=== PATIENT | male | born 1935 | race Caucasian/White ===

== ENCOUNTER 2023-08-31 08:59 | Emergency (ER) | payer OTHER, SELFPAY ==
[2023-08-31 09:15] VITALS: BP 118/62
[2023-08-31 09:44] LABS: % Basophils 1.2 % (0-2); % Eosinophils 5.4 % (0-6); % Immature Granulocytes 0.4 % (0-0.5); % Lymphocytes 20.2 % (20.5-51.1); % Neutrophils 62.8 % (42.2-75.2); Absolute Basophils 0.1 10^3/uL (0-0.2); Absolute Eosinophils 0.3 10^3/uL (0-0.7); Absolute Lymphocytes 1.1 10^3/uL (1.2-3.4); Absolute Monocytes 0.5 10^3/uL (0.1-0.6); Absolute Neutrophils 3.3 10^3/uL (1.4-6.5); Hematocrit 47.9 % (39.0-52.0); Hemoglobin 16.4 g/dL (13.0-18.0); Mean Corp Hgb Conc. 34.2 g/dL (33.0-37.0); Mean Corpuscular Volume 90.5 fL (80.0-94.0); Mean Platelet Volume 8.9 fL (7.4-10.4); Nucleated Red Blood Cells % 0 % (-); Platelet Count 176 10^3/uL (130-400); Red Blood Cell Count 5.29 10^6/uL (4.70-6.10); Red Cell Dist. Width 13.6 % (11.5-14.5); White Blood Cell Count 5.2 10^3/uL (4.8-10.8)
[2023-08-31] MEDS: ANTIVERT 25 MG PO (11:48)
[2023-08-31 11:55] VITALS: BP 121/77
[2023-08-31 12:18] LABS: Blood Urea Nitrogen 24 mg/dl (9-20); Calcium 9.6 mg/dl (8.4-10.2); Carbon Dioxide 25 mmol/L (22-30); Chloride 108 mmol/L (98-107); Glucose 87 mg/dl (70-99); Sodium 138 mmol/L (135-145); eGFR > 60.00
--- NOTE | 2023-08-31 12:52 | ED.GENMED ---
History of Present Illness
General
Chief Complaint: Dizziness
Source: patient and spouse
Time Seen by Provider: 08/31/23 10:46
Travel History
Have you had any contact with someone who has COVID-19?: No
Do you have any symptoms of coronavirus? Fever > 100 degrees, chills, cough, shortness of breath, sore throat, loss of taste or smell, muscle aches, or headache?: No
History of Present Illness
History of Present Illness:
87-year-old male who presents with dizziness that began 2 days ago. The patient states he has been congested for a few weeks. Patient admits that he has had some fullness in his ears as well as just upper airway congestion. He did have a Botox to
his bladder recently but suspect that that related. Since Friday he has had a sense of movement when he shifts his head quickly. He states when he looks up or stands up he develops a sense that he needs to hold onto something. He denies
difficulty walking. No motor weakness. No headache or vision changes. No numbness or tingling. He has had vertigo in the past.
Past History
Past History
ED Past Medical History: Cancer, GERD, Hypercholesterolemia and Other (prostate ca, frequent urination.)
ED Past Surgical History: Orthopedic, Tonsilectomy and Other (History of green light laser prostate vaporization, kidney stone retrieval, left ureteroscopy, stent in 2007, left knee cyst excision)
Social History
Tobacco: Non-smoker
Alcohol: Other
Drug: None
Personal:
Living: with family
Employment: Other
Family History
Family History: Other
Phy Exam
Physical Exam
Physical Exam:
CONSTITUTIONAL Patient alert and oriented to person, place and time. Well-appearing. Vital signs reviewed.
HEAD atraumatic, normocephalic.
EYES eyelids normal to inspection, Pupils equally round and reactive to light, Extraocular muscles intact, Conjunctiva normal, Sclera normal.
NECK normal range of motion, Trachea midline, no jugular venous distention.
RESPIRATORY CHEST No respiratory distress noted, Chest expansion equal, Bilateral breath sounds clear.
CARDIOVASCULAR regular rate and rhythm, Heart sounds normal.
ABDOMEN abdomen nontender, Bowel sounds normal. No distention.
BACK normal inspection, no obvious deformities
UPPER EXTREMITY range of motion normal, Motor strength normal, no cyanosis, no edema.
LOWER EXTREMITY range of motion normal, Motor strength normal, no cyanosis, no edema.
NEURO Speech normal, No focal motor deficits, [place] coma scale 15, Memory normal, Cranial Nerves intact to screening exam. Normal [id number]. Normal [id number]. Symptoms clearly reproduced with the patient turned his head to the right
SKIN skin warm, dry, and normal in color.
Course
Orders/Labs/Results
Orders:
Orders
08/31/23 09:19
EKG [Electrocardiogram (*1)] Urgent
Reason for Study: Shortness of Breath
EKG- Treatment ONCE
08/31/23 09:33
Complete Blood Count/With Diff Urgent
08/31/23 11:36
Meclizine [Antivert] 25 mg PO NOW STA
08/31/23 11:54
Basic Metabolic Panel Urgent
Abnormal Lab Results
08/31/23 08/31/23
09:33 11:54
Absolute Lymphs (auto) 1.1 L 10^3/uL
(1.2-3.4)
Lymphocytes % 20.2 L %
(20.5-51.1)
Monocytes % 10.0 H %
(1.7-9.3)
Chloride 108 H mmol/L
(98-107)
BUN 24 H mg/dl
(9-20)
Creatinine 0.6 L mg/dL
(0.7-1.3)
08/31/23 09:33
08/31/23 11:54
Vital Signs
Initial and Last Documented VS:
Initial Vital Signs
Temp Pulse Resp BP Pulse Ox
98.0 F 84 16 118/62 96
08/31/23 09:15 08/31/23 09:15 08/31/23 09:15 08/31/23 09:15 08/31/23 09:15
Last Documented Vital Signs
Temp Pulse Resp BP Pulse Ox
98.0 F 79 16 121/77 97
08/31/23 09:15 08/31/23 11:55 08/31/23 11:55 08/31/23 11:55 08/31/23 11:55
MDM/Problems Addressed
MDM/Problems Addressed:
Vertigo, upper airway congestion
*Pulse Oximetry
Patient hypoxic: no
*EKG
Interpreted by ED Provider?: Yes
Interpretation: normal
Rate: normal
Rhythm: sinus
[place]: normal axis
Interval: normal interval
QRS Pattern: normal QRS
Ischemia: no ischemia
*Buttermaker Helper Interpretation
Rate: normal
Interpretation: normal
Rhythm: sinus
*Critical Care Note
Total Time (30-74mins, 75-104mins- exclusive of procedures): Not Applicable
Data Reviewed
Review of Other/Old Records Reveals: Discharge Summary (Discharge summary from December 2022 reviewed revealing history of vertigo)
Source: patient
Further Testing Considered But Not Given:
Considered admission for MRI-patient feels much improved after Antivert
Patient Management
Escalation/DeEscalation of care consider admission/obs:
Symptoms and clinical exam consistent with peripheral vertigo. History of vertigo. Cerebellar exam normal. Much improved after meclizine. Discharge. Recommended PCP follow-up as well as physical therapy follow-up. Patient was given the
vestibular physical therapy number
ED Attending Note
-
Portions of this chart may have been created with voice recognition software.� Occasional wrong word or��sound alike� substitutions may have occurred due to the inherent limitations of voice recognition software.
Discharge Plan
Departure
Patient Disposition: Home (Routine Discharge)
Date of Disposition: 08/31/23
Time of Disposition: 12:54
Patient with high blood pressure during this ER visit?: No
Discharge Problem:
Vertigo
Instructions: Vertigo (a Type of Dizziness) (DC)
Prescriptions:
New
meclizine 25 mg tablet
25 mg PO TID PRN (Reason: dizziness) Qty: 20 0RF
No Action
pantoprazole 40 MG tablet,delayed release (DR/EC)
40 mg PO DAILY Qty: 30 0RF
Myrbetriq 50 MG tablet extended release 24 hr
50 mg PO DAILY
famotidine 20 MG tablet
20 mg PO HS
Centrum Ultra Men's 8 mg iron- 200 mcg-600 mcg Tablet
1 tab PO DAILY
omega 3-vdy-qlo-fish oil [Fish Oil] 60-90-500 mg Capsule
1 cap PO DAILY
aspirin 81 mg Tablet,Delayed Release (Dr/Ec)
81 mg PO DAILY Qty: 10 0RF
Referrals:
Sharron Dias CRNP [Family Provider] -
Activity Restrictions/Additional Instructions:
Return immediately for difficulty walking, vision changes, motor weakness of any kind or any other concerns. Please see your doctor in follow-up in the next 3 to 5 days. Please also consider outpatient follow-up with physical therapy.
Interventions
Interventions:
*Risk Screen - Suicide Last Done: 08/31/23 11:55
*General Assessment Last Done: 08/31/23 11:01
*Neglect/Abuse Screening Last Done: 08/31/23 11:55
ED- Fall Risk Assessment Last Done: 08/31/23 13:08
*ED COVID-19 Vaccine History Last Done: 08/31/23 09:15
*Nursing Disposition Last Done: 08/31/23 13:08
ED- Neurological Assessment Last Done: 08/31/23 11:55
ED- Cardiac Assessment Last Done: 08/31/23 11:55
Discharge Date and Time
Discharge Date/Time: 08/31/23 13:10
== END 2023-08-31 13:10 | disposition home or self-care (01) ==
LOC: EMR 08:59
PROVIDERS: EMERGENCY PHYSICIAN Emergency Medicine; FAMILY PHYSICIAN Nurse Practitioner Family
DX: R42 Dizziness and giddiness (principal)
CPT/HCPCS: 99284; 80048; 85025; 93005

== ENCOUNTER 2023-09-12 06:54 | Outpatient (RCR) | payer OTHER, SELFPAY | END 2023-09-12 23:59 | disposition home or self-care (01) | LOC: RPT 06:54 | PROVIDERS: ATTENDING PHYSICIAN Nurse Practitioner Family | DX: R26.81 Unsteadiness on feet (principal); R42 Dizziness and giddiness; Z73.6 Limitation of activities due to disability; R26.2 Difficulty in walking, not elsewhere classified | CPT/HCPCS: 97110; 97162 ==

== ENCOUNTER → 2023-10-04 09:57 | Outpatient (REF) | payer OTHER, SELFPAY | LOC: RAD 09:57 | PROVIDERS: ATTENDING PHYSICIAN Nurse Practitioner Family | DX: H81.4 Vertigo of central origin (principal) | CPT/HCPCS: 70450 ==

== ENCOUNTER → 2023-11-13 12:43 | Outpatient (REF) | payer OTHER, SELFPAY | LOC: REG 12:43 | PROVIDERS: ATTENDING PHYSICIAN Urology; FAMILY PHYSICIAN Nurse Practitioner Family | DX: N39.0 Urinary tract infection, site not specified (principal) | CPT/HCPCS: 87086 ==

== ENCOUNTER 2024-03-26 06:24 | Day surgery (SDC) | payer OTHER, SELFPAY ==
[2024-03-26 10:20] VITALS: BP 169/100
[2024-03-26 10:41] VITALS: BMI 23.0
[2024-03-26 11:22] VITALS: BP 97/58
[2024-03-26 11:30] VITALS: BP 105/72
[2024-03-26 11:45] VITALS: BP 107/68
== END 2024-03-26 11:50 | disposition home or self-care (01) ==
LOC: SDS 06:24
PROVIDERS: ATTENDING PHYSICIAN Internal Medicine; FAMILY PHYSICIAN Nurse Practitioner Family
PROC: 0DB68ZX Excision of Stomach, Via Natural or Artificial Opening Endoscopic, Diagnostic (ICD-10-PCS; 2024-03-26)
PROC: 0DB48ZX Excision of Esophagogastric Junction, Via Natural or Artificial Opening Endoscopic, Diagnostic (ICD-10-PCS; 2024-03-26)
PROC: 3E0G8GC Introduction of Other Therapeutic Substance into Upper GI, Via Natural or Artificial Opening Endoscopic (ICD-10-PCS; 2024-03-26)
DX: K22.0 Achalasia of cardia (principal); K22.2 Esophageal obstruction; K29.70 Gastritis, unspecified, without bleeding
CPT/HCPCS: 43239; 43236; 88305; 88342; J0585

== ENCOUNTER 2024-03-28 10:49 | Emergency (ER) | payer OTHER, SELFPAY ==
[2024-03-28 10:52] VITALS: BP 138/79
[2024-03-28 11:32] VITALS: BP 102/63
[2024-03-28 12:03] VITALS: BP 117/66
--- NOTE | 2024-03-28 12:56 | ED.GENMED ---
History of Present Illness
General
Chief Complaint: Visual Problem
Time Seen by Provider: 03/28/24 11:18
History of Present Illness
History of Present Illness:
88-year-old male without significant past medical history presenting to the emergency department for blurred vision to the left eye. Patient reports that 2 weeks ago he had an episode of eye pain and blurred vision, however resolved. Reports that
he was mowing the lawn yesterday and when he woke up this morning, again had eye pain and blurred vision. He reports that he has not seen an eye doctor in a while. Denies any associated headache, difficulty breathing. Denies fever. Denies
abdominal pain or GI symptoms. Denies focal weakness or sensory deficits to his extremities. Denies additional acute medical complaints.
Past History
Past History
ED Past Medical History: Cancer, GERD, Hypercholesterolemia and Other (prostate ca, frequent urination.)
ED Past Surgical History: Orthopedic, Tonsilectomy and Other (History of green light laser prostate vaporization, kidney stone retrieval, left ureteroscopy, stent in 2007, left knee cyst excision)
Social History
Tobacco: Non-smoker
Alcohol: Other
Drug: None
Personal:
Living: with family
Employment: Other
Family History
Family History: Other
Phy Exam
Physical Exam
Physical Exam:
General: Well-appearing, no clinical signs of dehydration, nontoxic and in no acute distress
HEENT: protecting airway, pupils equal and reactive bilaterally, extraocular movements intact. No proptosis. No cloudiness of the cornea
Neck: appears supple
CV: Normal heart rate, regular rhythm, no evidence of cyanosis
Resp: No accessory muscle use, no increased work of breathing, lungs clear to auscultation bilaterally
Abd: Nondistended
Extremities: No deformities, no swelling
Neuro: alert, no focal neurologic deficit
: deferred
Rectal: deferred
Psych: Normal affect
Skin: Intact
Course
Orders/Labs/Results
Orders:
Orders
03/28/24 12:01
CT Head W/o Iv Contrast Urgent
Comment:
Reason For Exam: blurred vision left eye
03/28/24 12:08
Tetracaine HCl [Tetracaine 0.5% Ophthalmic Solution] 1 drop .ROUTE .STK-MED ONE
Vital Signs
Initial and Last Documented VS:
Initial Vital Signs
Temp Pulse Resp BP Pulse Ox
98.4 F 89 16 138/79 95
03/28/24 10:52 03/28/24 10:52 03/28/24 10:52 03/28/24 10:52 03/28/24 10:52
Last Documented Vital Signs
Temp Pulse Resp BP Pulse Ox
98.4 F 89 16 117/66 95
03/28/24 10:52 03/28/24 10:52 03/28/24 10:52 03/28/24 12:03 03/28/24 12:03
MDM/Problems Addressed
MDM/Problems Addressed:
88-year-old male presenting for left eye blurriness and pain. Vital signs normal.
On exam, patient is well-appearing, no acute distress or discomfort. Overall unremarkable external examination of the eye. Visual acuity obtained, poor vision bilaterally, 20/125 to the left and 20/100 to the right. Patient has not seen an eye
doctor in a while. Eye pressures obtained to evaluate for possible acute angle-closure glaucoma. Normal pressures bilaterally, 12 in the affected eye, 15 in the right eye. Patient's eye was fluorescein, evidence of a corneal abrasion on the left.
Suspect etiology of patient's symptoms. Notes that he was cutting the grass yesterday and may have gotten some time. Given episode about 2 weeks ago as well as patient's age, will screen with CT brain imaging. Otherwise no focal neurologic
deficits. Patient afebrile, nontoxic
CT without acute intracranial abnormality. On reassessment patient remains hemodynamically stable. At this time feel that he is stable for discharge. Will start patient on ophthalmic antibiotic. However, advise very close interval follow-up with
eye doctor. Return precautions discussed and patient verbalized understanding
*Critical Care Note
Total Time (30-74mins, 75-104mins- exclusive of procedures): Not Applicable
ED Attending Note
-
Portions of this chart may have been created with voice recognition software.� Occasional wrong word or��sound alike� substitutions may have occurred due to the inherent limitations of voice recognition software.
Discharge Plan
Departure
Patient Disposition: Home (Routine Discharge)
Date of Disposition: 03/28/24
Time of Disposition: 14:11
Patient with high blood pressure during this ER visit?: No
Condition: Good
Discharge Problem:
Corneal abrasion, Blurred vision
Instructions: Corneal Abrasion ED
Prescriptions:
New
erythromycin 5 mg/gram (0.5 %) ointment
0.5 inch ophthalmic (eye) QID 5 Days Qty: 3.5 0RF
No Action
mirabegron [Myrbetriq] 25 mg Tablet Extended Release 24 Hr
25 mg PO DAILY
Centrum
1 tab PO DAILY
Referrals:
Sharron Dias CRNP [Family Provider] -
Emanuel Navarro MD [Active] - (blurred vision)
Activity Restrictions/Additional Instructions:
You were seen in the emergency department for blurred vision
You were found to have a scratch on your cornea. Please follow-up with eye doctor
Please follow-up closely with your primary care physician.
Return to the emergency department for any worsening of your symptoms including any worsening of your vision, increased pain to the eye, redness or swelling to the eye, or any development of chest pain, difficulty breathing, abdominal pain with
persistent vomiting and inability to tolerate food or liquid by mouth (concern for dehydration), weakness, headache or confusion, fever greater than 100.4, or any additional symptoms that are concerning to you.
Thank you for choosing [facility].
Interventions
Interventions:
*Risk Screen - Suicide Last Done: 03/28/24 11:32
*General Assessment Last Done: 03/28/24 11:32
*Neglect/Abuse Screening Last Done: 03/28/24 11:32
ED- Fall Risk Assessment Last Done: 03/28/24 11:32
*ED COVID-19 Vaccine History Last Done: 03/28/24 11:32
ED- Neurological Assessment Last Done: 03/28/24 11:32
ED-EENT Assessment Last Done: 03/28/24 11:32
ED Swallowing Screen Last Done: 03/28/24 11:32
Discharge Date and Time
Print Language: [place]
[2024-03-28 14:28] VITALS: BP 125/85
== END 2024-03-28 14:30 | disposition home or self-care (01) ==
LOC: EMR 10:49
PROVIDERS: EMERGENCY PHYSICIAN Student in an Organized Health Care Education/Training Program; FAMILY PHYSICIAN Nurse Practitioner Family
DX: S05.02XA Injury of conjunctiva and corneal abrasion without foreign body, left eye, initial encounter (principal); X58.XXXA Exposure to other specified factors, initial encounter; H53.8 Other visual disturbances; K21.9 Gastro-esophageal reflux disease without esophagitis; E78.00 Pure hypercholesterolemia, unspecified; Z85.46 Personal history of malignant neoplasm of prostate; Z87.442 Personal history of urinary calculi
CPT/HCPCS: 99284; 70450

== ENCOUNTER → 2024-06-08 14:50 | Outpatient (REF) | payer OTHER, SELFPAY | LOC: RAD 14:50 | PROVIDERS: ATTENDING PHYSICIAN Nurse Practitioner Family | DX: R05.1 Acute cough (principal) | CPT/HCPCS: 71046 ==

== ENCOUNTER 2024-06-27 09:53 | Emergency (ER) | payer OTHER, SELFPAY ==
[2024-06-27 09:55] VITALS: BP 173/95
--- NOTE | 2024-06-27 10:37 | ED.GENMED ---
History of Present Illness
<Perla Carlson MD, Resident - Last Filed: 06/27/24 11:03>
General
Chief Complaint: Musculo-Skeletal Complaint
Time Seen by Provider: 06/27/24 10:18
History of Present Illness
History of Present Illness:
88 y/o male with pmhx of prostate cancer s/p prostatectomy presenting to the ED with pain in his left groin following yard work earlier today. Pt notes he was moving branches and got hit in that area. Pain is prominently in the left groin. Pt has
urinated after injury and denies blood in urine. No other symptoms.
Past History
<Perla Carlson MD, Resident - Last Filed: 06/27/24 11:03>
Past History
ED Past Medical History: Cancer, GERD, Hypercholesterolemia and Other (prostate ca, frequent urination.)
ED Past Surgical History: Orthopedic, Tonsilectomy and Other (History of green light laser prostate vaporization, kidney stone retrieval, left ureteroscopy, stent in 2007, left knee cyst excision)
Social History
Tobacco: Non-smoker
Alcohol: Other
Drug: None
Personal:
Living: with family
Employment: Other
Family History
Family History: Other
Review of Systems
<Perla Carlson MD, Resident - Last Filed: 06/27/24 11:03>
Review of Systems
Constitutional: Reports no symptoms
EENT: Reports no symptoms
Respiratory: Reports no symptoms
Cardiac: Reports no symptoms
ABD/GI: Reports no symptoms
: Reports other (groin pain)
Musculoskeletal: Reports no symptoms
Skin: Reports no symptoms
Neurological: Reports no symptoms
Endocrine: Reports no symptoms
Hematologic/Lymphatic: Reports no symptoms
Psychiatric: Reports no symptoms
Phy Exam
<Perla Carlson MD, Resident - Last Filed: 06/27/24 11:03>
Physical Exam
Physical Exam:
GENERAL: Alert, in no apparent distress
EYE: pupils equal and reactive
NECK: Supple, no significant adenopathy.
ENT: o/p clr, mmm.
CARDIAC: Regular rate and rhythm .
LUNGS: Clear breath sounds bilaterally, no acute respiratory distress, no wheezes/rales/rhonchi
ABDOMEN: Soft, without focal tenderness, no r/g, no cvat.
NEUROLOGICAL: Alert and oriented, no focal neuro deficits
SKIN: Warm and dry, skin intact.
MUSCULOSKELETAL: No edema, well perfused. Femoral and distal pulses palpated
PSYCH: Normal and appropriate interaction.
Genitourinary Exam Male
Exam Male: no CVAT, no discharge, normal external genitalia, normal testicular exam, no evidence of trauma, no lesions, no testicular swelling and no testicular tenderness
Course
<Perla Carlson MD, Resident - Last Filed: 06/27/24 11:03>
Vital Signs
Initial and Last Documented VS:
Initial Vital Signs
Temp Pulse Resp BP Pulse Ox
97.8 F 69 18 173/95 95
06/27/24 09:55 06/27/24 09:55 06/27/24 09:55 06/27/24 09:55 06/27/24 09:55
Last Documented Vital Signs
Temp Pulse Resp BP Pulse Ox
98.2 F 68 14 141/88 98
06/27/24 11:50 06/27/24 11:50 06/27/24 11:50 06/27/24 11:50 06/27/24 11:50
Elainelt;Sadi Beltran DO - Last Filed: 06/27/24 17:20>
Vital Signs
Initial and Last Documented VS:
Initial Vital Signs
Temp Pulse Resp BP Pulse Ox
97.8 F 69 18 173/95 95
06/27/24 09:55 06/27/24 09:55 06/27/24 09:55 06/27/24 09:55 06/27/24 09:55
Last Documented Vital Signs
Temp Pulse Resp BP Pulse Ox
98.2 F 68 14 141/88 98
06/27/24 11:50 06/27/24 11:50 06/27/24 11:50 06/27/24 11:50 06/27/24 11:50
<Perla Carlson MD, Resident - Last Filed: 06/27/24 11:03>
MDM/Problems Addressed
Differential Diagnosis Includes:
Contusion
<Sadi Beltran, DO - Last Filed: 06/27/24 17:20>
MDM/Problems Addressed
Differential Diagnosis Includes:
Contusion, testicular injury,
MDM/Problems Addressed:
Physical exam shows some tenderness in the inguinal region. Testicle itself is okay. No further workup indicated
<Perla Carlson MD, Resident - Last Filed: 06/27/24 11:03>
*Critical Care Note
Total Time (30-74mins, 75-104mins- exclusive of procedures): Not Applicable
ED Attending Note
<Perla Carlson MD, Resident - Last Filed: 06/27/24 11:03>
-
Portions of this chart may have been created with voice recognition software.� Occasional wrong word or��sound alike� substitutions may have occurred due to the inherent limitations of voice recognition software.
<Sadi Beltran, DO - Last Filed: 06/27/24 17:20>
ED Attending Note
Patient seen and examined by attending physician: Yes
I performed a history and physical exam of patient and discussed management with resident, I reviewed resident's note and agree with documented findings and plan of care.: Yes
ED Attending Note:
I agree with Dr. Carlson's note.
Pt with pain left groin after branch struck him in left groin after he cut it. No testicular pain.
Genitalia: normal appearing male genitalia. Tender to palpation left groin
Contusion.....supportive care
Discharge Plan
Departure
Patient Disposition: Home (Routine Discharge)
Date of Disposition: 06/27/24
Time of Disposition: 10:56
Patient with high blood pressure during this ER visit?: Yes
Discharge Problem:
Left groin pain
Instructions: BLOOD PRESSURE
Prescriptions:
No Action
mirabegron [Myrbetriq] 25 mg Tablet Extended Release 24 Hr
25 mg PO DAILY
Centrum
1 tab PO DAILY
erythromycin 5 mg/gram (0.5 %) ointment
0.5 inch ophthalmic (eye) QID 5 Days Qty: 3.5 0RF
Referrals:
Sharron Dias CRNP [Family Provider] -
Interventions
Interventions:
*Risk Screen - Suicide Last Done: 06/27/24 09:55
*General Assessment Last Done: 06/27/24 09:55
*Neglect/Abuse Screening Last Done: 06/27/24 09:55
ED- Fall Risk Assessment Last Done: 06/27/24 11:05
*ED COVID-19 Vaccine History Last Done: 06/27/24 11:05
*Nursing Disposition Last Done: 06/27/24 11:05
ED-Musculoskeletal Assessment Last Done: 06/27/24 11:50
Discharge Date and Time
Discharge Date/Time: 06/27/24 11:05
Print Language: [id number]
[2024-06-27 11:50] VITALS: BP 141/88
== END 2024-06-27 11:05 | disposition home or self-care (01) ==
LOC: EMR 09:53
PROVIDERS: EMERGENCY PHYSICIAN Emergency Medicine; FAMILY PHYSICIAN Nurse Practitioner Family
DX: R10.32 Left lower quadrant pain (principal); W22.8XXA Striking against or struck by other objects, initial encounter; K21.9 Gastro-esophageal reflux disease without esophagitis; E78.00 Pure hypercholesterolemia, unspecified; Z85.46 Personal history of malignant neoplasm of prostate; Z87.442 Personal history of urinary calculi; Z90.79 Acquired absence of other genital organ(s)
CPT/HCPCS: 99282

== ENCOUNTER 2024-08-08 09:20 | Emergency (ER) | payer OTHER, SELFPAY ==
[2024-08-08 09:23] VITALS: BP 143/82
--- NOTE | 2024-08-08 10:13 | ED.GENMED ---
History of Present Illness
<Ariane Fletcher PA-C - Last Filed: 08/08/24 17:58>
General
Chief Complaint: Skin Surface Trauma
Source: patient
Exam Limitations: none
Time Seen by Provider: 08/08/24 10:03
Nursing documentation reviewed up to this point in time: agreed with
History of Present Illness
History of Present Illness:
Patient is 88 year old male w/ hx hyperlipidemia, GERD presenting to the emergency department for evaluation of left foot laceration. Patient states he was getting ready for bed last night around 10 PM when he hit the bottom of his foot against a
piece of furniture causing the laceration. He was able to get the bleeding to stop last night and applied a Band-Aid. It started bleeding again this morning prompting his visit to the emergency department. Patient did not sustain any other
injuries in the fall. No blood thinners. Unknown last tetanus vaccine.
Past History
<Ariane Fletcher PA-C - Last Filed: 08/08/24 17:58>
Past History
ED Past Medical History: Cancer, GERD, Hypercholesterolemia and Other (prostate ca, frequent urination.)
ED Past Surgical History: Orthopedic, Tonsilectomy and Other (History of green light laser prostate vaporization, kidney stone retrieval, left ureteroscopy, stent in 2007, left knee cyst excision)
Social History
Tobacco: Non-smoker
Alcohol: Other
Drug: None
Personal:
Living: with family
Employment: Other
Family History
Family History: Other
Review of Systems
<BUDDY Araujo Last Filed: 08/08/24 17:58>
Review of Systems
Allergies reviewed?: Yes
All Other Systems: ROS reviewed and negative except as documented in HPI and ROS
Phy Exam
<Ariane Fletcher PA-C - Last Filed: 08/08/24 17:58>
Physical Exam
Physical Exam:
Vitals: Mildly hypertensive, otherwise vital signs stable. Afebrile
General: Patient is well appearing, no acute distress. Nontoxic appearing
Skin: Approximately 3 cm curved superficial skin flap of callous on left plantar foot. No active bleeding
Head: Normocephalic, atraumatic
Throat: Protecting airway
Neck: Normal ROM, no cervical spine tenderness
Cardiac: Regular rate
Pulm: No apparent respiratory distress
Abdomen: Nondistended
Extremities: Superficial skin flap laceration to left plantar foot as described above. LLE neurovascularly intact. Palpable DP pulses.
Neuro: Grossly intact
Psychiatric: Normal affect.
Course
<Ariane Fletcher PA-C - Last Filed: 08/08/24 17:58>
Orders/Labs/Results
Orders:
Orders
08/08/24 10:12
Tetanus/Diphth/Acelpertussis [Adacel] 0.5 ml IM .ONCE ONE
Vital Signs
Initial and Last Documented VS:
Initial Vital Signs
Temp Pulse Resp BP Pulse Ox
97.5 F 98 16 143/82 95
08/08/24 09:23 08/08/24 09:23 08/08/24 09:23 08/08/24 09:23 08/08/24 09:23
Last Documented Vital Signs
Temp Pulse Resp BP Pulse Ox
97.5 F 98 16 143/82 95
08/08/24 09:23 08/08/24 09:23 08/08/24 09:23 08/08/24 09:23 08/08/24 09:23
<Rob Moore DO - Last Filed: 08/08/24 10:44>
Orders/Labs/Results
Orders:
Orders
08/08/24 10:12
Tetanus/Diphth/Acelpertussis [Adacel] 0.5 ml IM .ONCE ONE
Vital Signs
Initial and Last Documented VS:
Initial Vital Signs
Temp Pulse Resp BP Pulse Ox
97.5 F 98 16 143/82 95
08/08/24 09:23 08/08/24 09:23 08/08/24 09:23 08/08/24 09:23 08/08/24 09:23
Last Documented Vital Signs
Temp Pulse Resp BP Pulse Ox
97.5 F 98 16 143/82 95
08/08/24 09:23 08/08/24 09:23 08/08/24 09:23 08/08/24 09:23 08/08/24 09:23
Procedures
<Ariane Fletcher PA-C - Last Filed: 08/08/24 17:58>
Laceration Closure
Left Plantar Foot:
Status of Wound: clean
Size of Wound in cm: 3
Description of Wound Edges: flap-well vascularized
Preparation: cleaned with saline
Revision/Debridement: routine- no revision
Wound exploration: explored to base- no FB
Type of Closure: Dermabond-skin glue
<Ariane Fletcher PA-C - Last Filed: 08/08/24 17:58>
MDM/Problems Addressed
Differential Diagnosis Includes:
Not limited to: Laceration, contusion, etc.
MDM/Problems Addressed:
88-year-old male presenting with laceration to left plantar foot which occurred last night after stubbing his foot in a furniture. Patient denies any blood thinners. No other injury sustained. Patient is stable vital signs on arrival. On
exam�patient is well-appearing, no apparent distress. There is a very superficial flap laceration of left plantar foot that is not bleeding. It appears to be a laceration of a callus. Left lower extremity neurovascular intact. Wound was
thoroughly irrigated normal saline. Dermabond skin glue was applied to further enforced superficial flap with wound edges well-approximated. Tetanus shot updated. Advise close monitoring for signs of infection. Wound care instruction discussed.
Patient stable for discharge.
Chronic conditions affecting care:
N/A
Acute Exacerbation and/or Progression of Chronic Illness:
N/A
<Ariane Fletcher PA-C - Last Filed: 08/08/24 17:58>
*Pulse Oximetry
Patient hypoxic: no
*EKG
Interpreted by ED Provider?: NA
*Lieutenant/Deputy Interpretation
Rate: Lieutenant/Deputy- N/A
*Critical Care Note
Total Time (30-74mins, 75-104mins- exclusive of procedures): Not Applicable
ED Attending Note
<Ariane Fletcher PA-C - Last Filed: 08/08/24 17:58>
-
Portions of this chart may have been created with voice recognition software.� Occasional wrong word or��sound alike� substitutions may have occurred due to the inherent limitations of voice recognition software.
<Rob Moore DO - Last Filed: 08/08/24 10:44>
ED Attending Note
Patient seen and examined by attending physician: Yes
I performed the substantive portion of visit, reviewed & personally made and approve the management plan that is documented in note by myself or SAM.: Yes
Discharge Plan
Departure
Patient Disposition: Home (Routine Discharge)
Date of Disposition: 08/08/24
Time of Disposition: 10:45
Patient with high blood pressure during this ER visit?: Yes
Condition: Good
Covid-19: Not Applicable
Discharge Problem:
Laceration of foot, left
Instructions: Laceration Repair With Glue (DC), Wound Care (DC), BLOOD PRESSURE
Prescriptions:
No Action
mirabegron [Myrbetriq] 25 mg Tablet Extended Release 24 Hr
25 mg PO DAILY
Centrum
1 tab PO DAILY
erythromycin 5 mg/gram (0.5 %) ointment
0.5 inch ophthalmic (eye) QID 5 Days Qty: 3.5 0RF
Referrals:
Sharron Dias CRNP [Family Provider] - Follow up in 1 week
Activity Restrictions/Additional Instructions:
RETURN TO THE EMERGENCY DEPARTMENT WITH ANY BLEEDING THAT WILL NOT STOP AT HOME OR ANY SIGNS OF INFECTION INCLUDING FEVER, SIGNIFICANT REDNESS/SWELLING OF LEFT FOOT, RED STREAKING FROM WOUND, PUS DRAINING FROM WOUND, OR ANY OTHER CONCERNS
-As discussed�your wound was closed with skin glue today in the emergency department. This will slowly dissolve over time. Keep wound clean and dry. Wash gently with soap and water daily. Keep covered with Band-Aid.
-You should monitor very closely for signs infection and follow-up with your primary care return to the emergency department if you develop any infectious symptoms
-You should stay off your foot today and limit weightbearing over the next few days as wound continues to heal
Monitor your symptoms closely return to the emergency department with any acute worsening/new symptoms or any other concerns
Interventions
Interventions:
*Risk Screen - Suicide Last Done: 08/08/24 09:23
*General Assessment Last Done: 08/08/24 09:23
*Neglect/Abuse Screening Last Done: 08/08/24 09:23
*ED COVID-19 Vaccine History Last Done: 08/08/24 09:23
*Nursing Disposition Last Done: 08/08/24 10:55
Discharge Date and Time
Discharge Date/Time: 08/08/24 10:55
Print Language: FRENCH
[2024-08-08] MEDS: ADACEL 0.5 ML IM (10:50)
== END 2024-08-08 10:55 | disposition home or self-care (01) ==
LOC: EMR 09:20
PROVIDERS: EMERGENCY PHYSICIAN Emergency Medicine; FAMILY PHYSICIAN Nurse Practitioner Family
DX: S91.312A Laceration without foreign body, left foot, initial encounter (principal); W22.03XA Walked into furniture, initial encounter; E78.00 Pure hypercholesterolemia, unspecified; K21.9 Gastro-esophageal reflux disease without esophagitis
CPT/HCPCS: 99282; 12002; 90471; 90715

== ENCOUNTER → 2024-08-12 14:36 | Outpatient (REF) | payer OTHER, SELFPAY | LOC: REG 14:36 | PROVIDERS: ATTENDING PHYSICIAN Urology | DX: R30.0 Dysuria (principal) | CPT/HCPCS: 87086 ==

== ENCOUNTER → 2025-01-10 10:16 | Outpatient (REF) | payer OTHER, SELFPAY | LOC: REG 10:16 | PROVIDERS: ATTENDING PHYSICIAN Urology; FAMILY PHYSICIAN Nurse Practitioner Family | DX: R30.0 Dysuria (principal) | CPT/HCPCS: 87086 ==

== ENCOUNTER 2025-02-22 12:29 | Emergency (ER) | payer OTHER, SELFPAY ==
[2025-02-22 12:31] VITALS: BP 139/94
--- NOTE | 2025-02-22 13:23 | ED.GENMED ---
History of Present Illness
General
Chief Complaint: Fall
Source: patient
Time Seen by Provider: 02/22/25 12:50
History of Present Illness
History of Present Illness:
Note:
CHIEF COMPLAINT(S)
Skin abrasion on the back.
HISTORY OF PRESENT ILLNESS
The patient is an 89-year-old male who presented with a skin abrasion sustained approximately a day and a half ago from a fall. He reported tripping and to avoid hitting his head, he managed to fall on his back. The abrasion is located at the mid
thoracic spine area, specifically around the T9 to T10 spinous processes. The patient described a burning sensation at the site of the injury. The injury was noted to have taken a layer of skin off, requiring topical management to promote healing.
PHYSICAL EXAM
General: Alert, no acute distress.
Skin: Abrasion noted on the mid thoracic spine in the region of the T9 to T10 spinous processes. No surrounding redness, with small abrasions observed.
Head: Normocephalic, atraumatic.
Neck: Supple, trachea midline.
Eye, Ears, Nose, Mouth and Throat: Oral mucosa moist.
Cardiovascular: Normal peripheral perfusion, No edema.
Respiratory: Respirations are non-labored.
Gastrointestinal: Abdomen nondistended.
Back: Abrasion as noted. Normal alignment and range of motion.
Musculoskeletal: Normal range of motion, normal strength.
Neurological: Alert and oriented to person, place, time, and situation. No focal neurological deficit observed.
Psychiatric: Cooperative, appropriate mood and affect.
PLAN
1. Provide an antibiotic ointment for topical application today and tomorrow.
2. Advise switching to Vaseline for continued management to keep the area moist and support healing.
3. Instruct the patient to cover the abrasion with a dressing to prevent clothes from irritating the site, especially when outside the home or when sitting for extended periods.
4. Educate the patient to avoid sun exposure on the abrasion.
DIFFERENTIAL DIAGNOSIS
The Differential Diagnosis includes, in no particular order and is not limited to:
1. Mechanical fall with resultant abrasion
2. Contusion
3. Fracture (less likely given the presentation)
4. Infection of the site (preventive consideration)
5. Pressure ulceration (consideration given the location and age)
6. Skin laceration
7. Neuropathy-related skin changes
8. Musculoskeletal pain.
9. Spinal disc injury
10. Hematoma formation
Disposition:
SUMMARY OF ENCOUNTER
The patient, an 89-year-old male, presented with a skin abrasion on the mid thoracic spine after falling approximately a day and a half ago. The abrasion resulted from an attempt to prevent head injury during the fall. Notable findings include two
small abrasions at the areas of kyphosis. Management involved providing general wound care. There was no evidence of infection identified during the evaluation.
PLAN
1. Apply antibiotic ointment today and tomorrow.
2. Switch to Vaseline to maintain moisture and support healing.
3. Cover the abrasion with a dressing to prevent irritation from clothing, especially when outside or sitting for long durations.
4. Avoid sun exposure on the affected area.
MEDICAL DECISION MAKING
-Complexity of Data Reviewed: Chronic conditions affecting care may include the potential diagnoses of mechanical fall with resultant abrasion, contusion, infection prevention considerations, skin laceration, and pressure ulceration among others.
DIAGNOSIS
1. Abrasion, thoracic spine (ICD-10: S30.851A).
Past History
Past History
ED Past Medical History: Cancer, GERD, Hypercholesterolemia and Other (prostate ca, frequent urination.)
ED Past Surgical History: Orthopedic, Tonsilectomy and Other (History of green light laser prostate vaporization, kidney stone retrieval, left ureteroscopy, stent in 2007, left knee cyst excision)
Social History
Tobacco: Non-smoker
Alcohol: Other
Drug: None
Personal:
Living: with family
Employment: Other
Family History
Family History: Other
Phy Exam
Physical Exam
Physical Exam:
.
Course
Vital Signs
Initial and Last Documented VS:
Initial Vital Signs
Temp Pulse Resp BP Pulse Ox
98.1 F 86 16 139/94 96
02/22/25 12:31 02/22/25 12:31 02/22/25 12:31 02/22/25 12:31 02/22/25 12:31
Last Documented Vital Signs
Temp Pulse Resp BP Pulse Ox
98.1 F 86 16 139/94 96
02/22/25 12:31 02/22/25 12:31 02/22/25 12:31 02/22/25 12:31 02/22/25 12:31
*Pulse Oximetry
SaO2: 96
Oxygen Mode of Delivery: Room air
Patient hypoxic: no
*Critical Care Note
Total Time (30-74mins, 75-104mins- exclusive of procedures): Not Applicable
ED Attending Note
-
Portions of this chart may have been created with voice recognition software.� Occasional wrong word or��sound alike� substitutions may have occurred due to the inherent limitations of voice recognition software.
Discharge Plan
Departure
Patient Disposition: Home (Routine Discharge)
Date of Disposition: 02/22/25
Time of Disposition: 13:23
Patient with high blood pressure during this ER visit?: Yes
Discharge Problem:
Abrasion
Instructions: Skin Abrasions (DC), BLOOD PRESSURE
Prescriptions:
No Action
mirabegron [Myrbetriq] 25 mg Tablet Extended Release 24 Hr
25 mg PO DAILY
Centrum
1 tab PO DAILY
erythromycin 5 mg/gram (0.5 %) ointment
0.5 inch ophthalmic (eye) QID 5 Days Qty: 3.5 0RF
Referrals:
Sharron Dias CRNP [Family Provider, Family Practice]
Activity Restrictions/Additional Instructions:
Please keep wound clean and dry. Apply Vaseline 2-3 times a day for wound care. Return immediately for redness, drainage from the wound, worsening pain or any other concerns.
Interventions
Interventions:
*Risk Screen - Suicide Last Done: 02/22/25 12:33
*Neglect/Abuse Screening Last Done: 02/22/25 12:33
Discharge Date and Time
Print Language: BHUTANESE
== END 2025-02-22 13:31 | disposition home or self-care (01) ==
LOC: EMR 12:29
PROVIDERS: EMERGENCY PHYSICIAN Emergency Medicine; FAMILY PHYSICIAN Nurse Practitioner Family
DX: S20.419A Abrasion of unspecified back wall of thorax, initial encounter (principal); W01.0XXA Fall on same level from slipping, tripping and stumbling without subsequent striking against object, initial encounter; E78.00 Pure hypercholesterolemia, unspecified
CPT/HCPCS: 99282

== ENCOUNTER → 2025-05-30 10:01 | Outpatient (REF) | payer OTHER, SELFPAY ==
[2025-05-30 17:49] LABS: Hematocrit 51.7 % (39.0-52.0); Hemoglobin 16.8 g/dL (13.0-18.0); Mean Corp Hgb Conc. 32.5 g/dL (33.0-37.0); Mean Corpuscular Volume 92.7 fL (80.0-94.0); Nucleated Red Blood Cells % 0 % (-); Platelet Count 185 10^3/uL (130-400); Red Cell Dist. Width 14.2 % (11.5-14.5)
[2025-05-30 18:05] LABS: Urine Character Clear (Clear)
[2025-05-30 18:13] LABS: ALT (SGPT) 30 U/L (0-50); AST (SGOT) 31 U/L (17-59); Albumin 4.4 g/dl (3.5-5.0); Alkaline Phosphatase 93 U/L (38-126); Blood Urea Nitrogen 24 mg/dl (9-20); Calcium 9.4 mg/dl (8.4-10.2); Carbon Dioxide 26 mmol/L (22-30); Chloride 107 mmol/L (98-107); Glucose 81 mg/dl (70-99); Potassium 4.5 mmol/L (3.5-5.1); Sodium 141 mmol/L (135-145); Total Protein 7.4 g/dl (6.3-8.2); eGFR > 60.00
[2025-05-30 18:44] LABS: TSH 0.88 uIU/ml (0.47-4.68)
[2025-05-30 19:20] LABS: Folate > 20.0 ng/ml (2.76-20); Vitamin B12 498 pg/ml (239-931)
[2025-05-30 19:21] LABS: Urine Squamous Cell 0-2 /LPF (Few)
[2025-05-30 19:22] LABS: Urine Red Blood Cell 0-2 /HPF (0-2); Urine White Cell 0-2 /HPF (0-5)
== END ==
LOC: RAD 10:01
PROVIDERS: ATTENDING PHYSICIAN Family Medicine
DX: R63.4 Abnormal weight loss (principal); K22.0 Achalasia of cardia; Z86.018 Personal history of other benign neoplasm; R41.3 Other amnesia
CPT/HCPCS: 36415; 71046; 80053; 81003; 81015; 82607; 82746; 84439; 84443; 85025

== ENCOUNTER 2025-06-08 06:07 | Day surgery (SDC) | payer OTHER, SELFPAY ==
[2025-06-08 10:00] VITALS: BMI 20.8
[2025-06-08 10:05] VITALS: BP 153/90
[2025-06-08 10:13] VITALS: BMI 20.8
[2025-06-08] MEDS: NSS 500 IV (10:23)
[2025-06-08 11:21] VITALS: BP 91/67
[2025-06-08 11:30] VITALS: BP 90/74
[2025-06-08 11:45] VITALS: BP 101/77
== END 2025-06-08 12:00 | disposition home or self-care (01) ==
LOC: SDS 06:07
PROVIDERS: ATTENDING PHYSICIAN Internal Medicine
DX: K22.0 Achalasia of cardia (principal); K29.60 Other gastritis without bleeding
CPT/HCPCS: 43236; J0585

== ENCOUNTER → 2025-06-29 11:10 | Outpatient (REF) | payer OTHER, SELFPAY | LOC: RAD 11:10 | PROVIDERS: ATTENDING PHYSICIAN Radiology Diagnostic Radiology; FAMILY PHYSICIAN Nurse Practitioner Family | DX: Z13.5 Encounter for screening for eye and ear disorders (principal) | CPT/HCPCS: 70030 ==

== ENCOUNTER → 2025-07-20 15:41 | Outpatient (REF) | payer OTHER, SELFPAY | LOC: RAD 15:41 | PROVIDERS: ATTENDING PHYSICIAN Family Medicine | DX: R63.4 Abnormal weight loss (principal) | CPT/HCPCS: 74178; Q9967 ==